=== PATIENT | male | born 1980 | race Caucasian/White ===

== ENCOUNTER 2018-09-12 12:44 | Emergency (ER) | payer BC ==
[2018-09-12 13:01] VITALS: BP 135/88
--- NOTE | 2018-09-12 13:19 | EDM.PDOC ---
ED HPI GENERAL MEDICAL PROBLEM - General Stated Complaint: PAIN BIG TOE-POST SURGERY Time Seen by Provider: 09/12/18 13:00 Source of Information: Reports: Patient History Limitations: Reports: No Limitations - History of Present Illness INITIAL COMMENTS - FREE TEXT/NARRATIVE: This 38 yo male patient reports to the ED with increased pain in his right foot (both 1st MCT and 5th MCT). The patient reports he had bunion surgery in May (pins placed during surgery). The patient reports he was doing fine until he was running several days ago and has had increased pain since that time. The patient has been taking OTC medication (Tylenol and ibuprofen), but has continued to have increased pain. The patient reports he has been resting, icing and elevating the extremity. The patient is concerned that he will be traveling over the next several days and will have to have increased activity which will cause increased pain. 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, NSAIDS Right Toe-Hailux Pain Score (Numeric/FACES): 5 - Related Data Allergies Allergy/AdvReac Type Severity Reaction Status Date / Time No Known Allergies Allergy Verified 09/12/18 12:54 Home Meds: Home Meds Ibuprofen [Advil] 200 mg PO ASDIRECTED PRN 03/27/14 [History] Acyclovir [Zovirax] 200 mg PO BID 12/20/15 [History] Zolpidem [Ambien] 10 mg PO BEDTIME 12/20/15 [History] Acetaminophen with Codeine [Acetaminophen-Cod #4] 2 each PO ASDIRECTED PRN 04/03 [History] ARIPiprazole [Abilify] 5 mg PO DAILY 09/12/18 [History] LORazepam [Ativan] 1.5 mg PO DAILY 09/12/18 [History] Past Medical History HEENT History: Reports: None Cardiovascular History: Reports: None Respiratory History: Reports: None Gastrointestinal History: Reports: None Genitourinary History: Reports: None Musculoskeletal History: Reports: None, Other (See Below) Neurological History: Reports: None Psychiatric History: Reports: Anxiety Endocrine/Metabolic History: Reports: None Hematologic History: Reports: None Immunologic History: Reports: None Oncologic (Cancer) History: Reports: None Dermatologic History: Reports: None - Past Surgical History HEENT Surgical History: Reports: None Respiratory Surgical History: Reports: None GI Surgical History: Reports: None Male Surgical History: Reports: None Social & Family History - Family History Family Medical History: Noncontributory - Tobacco Use Smoking Status *Q: Never Smoker - Caffeine Use Caffeine Use: Reports: Coffee - Recreational Drug Use Recreational Drug Use: No Review of Systems - Review of Systems Review Of Systems: ROS reveals no pertinent complaints other than HPI. ED EXAM, GENERAL - Physical Exam Exam: See Below Exam Limited By: No Limitations General Appearance: Alert, WD/WN, Mild Distress Eye Exam: Bilateral Eye: EOMI, Normal Inspection, PERRL Ears: Normal External Exam, Normal Canal, Hearing Grossly Normal, Normal TMs Nose: Normal Inspection, Normal Mucosa, No Blood Throat/Mouth: Normal Inspection, Normal Lips, Normal Teeth, Normal Gums, Normal Oropharynx, Normal Voice, No Airway Compromise Head: Atraumatic, Normocephalic Neck: Normal Inspection, Supple, Non-Tender, Full Range of Motion Respiratory/Chest: No Respiratory Distress, Lungs Clear, Normal Breath Sounds, No Accessory Muscle Use, Chest Non-Tender Cardiovascular: Normal Peripheral Pulses, Regular Rate, Rhythm, No Edema, No Gallop, No JVD, No Murmur, No Rub (Male) Exam: Deferred Rectal (Males) Exam: Deferred Extremities: Other (The patient reports pain with palpation and extension of the right great toe as well as pain with movement of ther right 5th toe. There does not appear to be swelling to the area. ) Neurological: Alert Psychiatric: Normal Affect, Normal Mood Skin Exam: Warm, Dry, Intact, Normal Color, No Rash Lymphatic: No Adenopathy Course - Vital Signs Last Recorded V/S: Last Vital Signs Temp 36.2 C 09/12/18 12:54 Pulse 81 09/12/18 12:54 Resp 16 09/12/18 12:54 BP 135/88 09/12/18 12:54 Pulse Ox 100 09/12/18 12:54 - Orders/Labs/Meds Orders: Active Orders 24 hr Category Date Time Status Foot Comp Min 3V Rt [CR] Urgent Exams 09/12/18 12:51 Ordered Departure - Departure Time of Disposition: 14:17 Disposition: Home, Self-Care 01 Condition: Fair Clinical Impression: Right foot pain - Discharge Information *PRESCRIPTION DRUG MONITORING PROGRAM REVIEWED*: Not Applicable *COPY OF PRESCRIPTION DRUG MONITORING REPORT IN PATIENT SIMIN: Not Applicable Forms: ED Department Discharge Care Plan Goals: The patient was advised of the examination and x-ray result during the visit. The patient was encouraged to rest, ice and elevate the extremity. The patient was discharged with a script for Larry () #12 to take 1 by mouth every 6 hours as needed. If the patient has any additional symptoms or concerns, the patient should follow-up with his primary care facility or return to the emergency department. - My Orders Last 24 Hours: My Active Orders 09/12/18 12:51 Foot Comp Min 3V Rt [CR] Urgent - Assessment/Plan Last 24 Hours: My Active Orders 09/12/18 12:51 Foot Comp Min 3V Rt [CR] Urgent
== END 2018-09-12 14:25 | disposition home or self-care (01) ==
LOC: DL.ED 12:44
DX: M79.674 Pain in right toe(s) (principal); F41.9 Anxiety disorder, unspecified; Z79.899 Other long term (current) drug therapy; Z98.890 Other specified postprocedural states
CPT/HCPCS: 73630-RT; 99283-25

== ENCOUNTER 2018-10-12 07:52 | Day surgery (SDC) | payer BC ==
[~2018-10-12 07:52] MED LIST: Lactated Ringers 1,000 ML IV SCH; Sodium Chloride 0.9% 10 ML Syringe FLUSH PRN
[2018-10-12] MEDS ORDERED: Midazolam 1 MG/ML 2 ML SDV IV ONE (07:53)
[2018-10-12] MEDS ORDERED: Propofol 200 MG/20 ML SDV IV ONE (07:53)
[2018-10-12] MEDS ORDERED: Ondansetron 4 MG/2 ML SDV IV ONE (07:53)
[2018-10-12] MEDS ORDERED: Ketorolac 30 MG/ML SDV IVPUSH ONE (07:53)
[2018-10-12] MEDS ORDERED: fentaNYL 100 MCG/2 ML SDV IV ONE (07:53)
[2018-10-12] MEDS ORDERED: Lidocaine 1% 30 ML SDV INJECT ONE ×3 (07:53→10:20)
[2018-10-12] MEDS ORDERED: Bupivacaine 0.5% 30 ML SDV INJECT ONE ×3 (07:53→10:20)
[2018-10-12] MEDS ORDERED: ceFAZolin 2 GM in Premix Bag 1 BAG IV ONE (08:00)
[2018-10-12] MEDS ORDERED: Lidocaine 1% 30 ML SDV ONE (09:28)
[2018-10-12] MEDS ORDERED: Bupivacaine 0.5% 30 ML SDV ONE (09:28)
[2018-10-12] MEDS ORDERED: Propofol 200 MG/20 ML SDV ONE (10:10)
[2018-10-12] MEDS ORDERED: Acetaminophen/HYDROcodone 325-10 MG Tab PO PRN (12:49)
--- NOTE | 2018-10-12 12:52 | PCM.OPNOTE ---
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 Giorgi 2.0 cannulated screw applied to 5th metatarsal. Epifix 4x4 applied to 1st and 5th met. Well padded compression dressing applied.
[2018-10-12 14:12] VITALS: BP 131/79
--- NOTE | 2018-10-13 12:44 | OR ---
DATE: 10/12/2018 PREOPERATIVE DIAGNOSES: 1. Right foot painful hardware. 2. 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 3. Right foot 1st metatarsophalangeal joint pain. POSTOPERATIVE DIAGNOSES: 1. Right foot painful hardware. 2. 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 3. Right foot 1st metatarsophalangeal joint pain. PROCEDURE PERFORMED: 1. Right foot painful hardware removal. 2. Right foot 5th metatarsal nonunion excision with screw fixation and EpiFix allograft. 3. Right foot 1st metatarsophalangeal joint exploration with bone spur excision. ANESTHESIA: Local MAC with preoperative local block of 10 mL of 1:1 mixture of 1% lidocaine plain and 0.5% Marcaine plain. TOURNIQUET TIME: 107 minutes, pneumatic ankle tourniquet. ESTIMATED BLOOD LOSS: Minimal. SPECIMEN REMOVED: None. COMPLICATIONS: None. INDICATIONS: Gabriele is a 38-year-old male, who presents for right foot pain after surgery. He states he had right foot surgery with a bunion and tailor's bunionectomy performed at the [facility] on 06/18/2018. He has been having pain to the surgical foot ever since. He has transitioned back to regular shoes, but is having a lot of pain with walking and standing. Most of the pain is to the outside of the foot at the tailor's bunionectomy, which is still very swollen. He also does have some pain to that great toe joint, which feels stiff. The pain is present all the time in this foot. X-rays of the right foot reveal bunionectomy with Elvin and tailor's bunionectomy present. K-wire to the 5th metatarsal is long and into his plantar foot, also protruding into the dorsolateral foot. The 5th metatarsal osteotomy is not healed. Screw intact to the 1st metatarsal and proximal phalanx with the bunion reduced, small ossicle in the medial 1st MTPJ. The patient voiced good understanding of the proposed procedure and possible complications, elects to have surgery at this time. DESCRIPTION OF PROCEDURE: The patient was taken to the operating room lying in supine position. After adequate anesthesia induction as described above, the right foot was prepped and draped in the usual sterile fashion. A pneumatic ankle tourniquet was inflated to 225 mmHg. Attention was then directed to the right foot first to the lateral aspect where an approximately 4 cm linear incision was made overlying the old incision site at the 5th metatarsal. Sharp and blunt dissection was performed down to the level of the 5th metatarsal. A linear capsulotomy was made and the distal 5th metatarsal was exposed. The K- wire was noted to be protruding into the soft tissues in this area and this K- wire was very loose and easily removed. The osteotomy site was inspected and was noted to be stable at the very lateral aspect; however, the dorsal and medial aspects were not healed and this fibrotic tissue at the osteotomy site was removed with a curette. A 2.0 cannulated screw was inserted across the nonunion site and it was noted to be stable with all forces applied. The area was then irrigated with copious amounts of sterile saline. A portion of the EpiFix #[id number] was placed on the 5th metatarsal. The area was then closed with deep closure with 3-0 Vicryl and skin closure with 4-0 nylon. Fluoroscopy was used throughout to verify proper positioning of the screw and fixation of the nonunion. Attention was then directed to the 1st metatarsophalangeal joint where an approximately 4 cm linear incision was made at the old incision site overlying the joint. Sharp and blunt dissection was performed down to the level of the joint capsule. A linear capsulotomy was made and the capsule was reflected to expose the distal 1st metatarsal. The joint was healthy in appearance; however, there was some bone spurring at the dorsal aspect of the 1st metatarsal head and proximal phalanx. This was removed with a sagittal saw and rongeur and also smoothed with a bone rasp. The great toe was noted to have better range of motion with this. It was fluid range of motion. The area was then irrigated with copious amounts of sterile saline. The rest of the EpiFix was placed at the top of the 1st metatarsophalangeal joint. Deep closure was completed with 3-0 Vicryl and skin closure was completed with 4-0 nylon. The area was dressed with Xeroform to the incision site, fluffs, Webril, and a well-padded compression dressing. The patient tolerated anesthesia and the procedure well, was transported to the recovery room with vital signs stable and vascular status intact as noted by immediate hyperemia to all digits upon deflation of the ankle tourniquet. The patient was then discharged home once he met hospital discharge requirements. [facility] /[id number]
== END 2018-10-12 13:25 | disposition home or self-care (01) ==
LOC: DL.SDS 07:52
PROVIDERS: ATTEND Podiatrist
DX: S92.351K Displaced fracture of fifth metatarsal bone, right foot, subsequent encounter for fracture with nonunion (principal); T84.84XA Pain due to internal orthopedic prosthetic devices, implants and grafts, initial encounter; M25.774 Osteophyte, right foot; F41.9 Anxiety disorder, unspecified; X58.XXXD Exposure to other specified factors, subsequent encounter; Z79.899 Other long term (current) drug therapy
CPT/HCPCS: 28107; 28322; A4217; J0690; J1885; J2001; J2250; J2405; J2704; J3010; J3490; J7120; C1713; C1776; Q4186

== ENCOUNTER 2019-01-25 05:30 | Day surgery (SDC) | payer BC ==
[2019-01-25] MEDS ORDERED: fentaNYL 100 MCG/2 ML SDV IV ONE (05:31)
[2019-01-25] MEDS ORDERED: Bupivacaine 0.5% 30 ML SDV INJECT ONE ×3 (05:31→08:53)
[2019-01-25] MEDS ORDERED: Dexamethasone 4 MG/ML SDV IV ONE (05:31)
[2019-01-25] MEDS ORDERED: Lidocaine 2% 20 ML MDV INJECT ONE (05:31)
[2019-01-25] MEDS ORDERED: Midazolam 1 MG/ML 2 ML SDV IV ONE (05:31)
[2019-01-25] MEDS ORDERED: Lidocaine 1% 30 ML SDV INJECT ONE ×3 (05:31→08:53)
[2019-01-25] MEDS ORDERED: Ketorolac 30 MG/ML SDV IVPUSH ONE (05:31)
[2019-01-25] MEDS ORDERED: ceFAZolin 2 GM in Premix Bag 1 BAG IV ONE (06:00)
[2019-01-25] MEDS ORDERED: Lactated Ringers 1,000 ML IV SCH (06:00)
[2019-01-25] MEDS ORDERED: Bupivacaine 0.5% 30 ML SDV ONE (06:26)
[2019-01-25] MEDS ORDERED: Lidocaine 1% 30 ML SDV ONE (06:26)
[2019-01-25] MEDS ORDERED: Sodium Chloride 0.9% 10 ML Syringe FLUSH PRN ×2 (07:00→08:00)
[2019-01-25] MEDS ORDERED: Acetaminophen/HYDROcodone 325-5 MG Tab PO PRN (09:02)
--- NOTE | 2019-01-25 09:06 | PCM.OPNOTE ---
- General Post-Op/Procedure Note Date of Surgery/Procedure: 01/25/19 Operative Procedure(s): Left foot 1st and 5th metatarsal bunionectomy/osteotomy Pre Op Diagnosis: left foot bunion and tailors bunion Post-Op Diagnosis: pradeep Anesthesia Technique: Local, MAC Primary Surgeon: Celeste Aparicio Garcia Anesthesia Provider: Eugene Barrios EBL in mLs: 5 Complications: none Condition: Good Free Text/Narrative:: Pt tolerated procedure well and was transported to recovery with vascular status intact to left foot. [place] 3.0 cannulated screws for 1st metatarsal, 2.0 cannulated screws for 5th metatarsal. Well padded compression dressing with cam boot applied.
[2019-01-25 10:32] VITALS: BP 140/85
--- NOTE | 2019-01-26 17:11 | OR ---
DATE: 01/25/2019 PREOPERATIVE DIAGNOSES: 1. Left foot bunion deformity. 2. Left foot tailor's bunion. POSTOPERATIVE DIAGNOSES: 1. Left foot bunion deformity. 2. Left foot tailor's bunion. PROCEDURE PERFORMED: 1. Left foot 1st metatarsal osteotomy/bunionectomy. 2. Left foot metatarsal osteotomy/bunionectomy. ANESTHESIA: Local MAC with preoperative local block at 10 mL of 1:1 mixture of 1% lidocaine plain, 0.5% Marcaine plain. Tourniquet time 103 minutes, pneumatic ankle tourniquet. ESTIMATED BLOOD LOSS: Minimal. SPECIMEN: None. COMPLICATIONS: None. INDICATION: Gabriele is a 38-year-old male who presents for left foot painful bunion and tailor's bunion. He has been having pain to his foot for a few years now. He does have history of right foot tailor's bunionectomy and bunionectomy of the 1st, that was last year, and he had a revision of the tailor's bunion back in September, that is well healed. He has pain whenever he is standing or walking, worse with pressure to the area. He has failed conservative options. X-rays of the left foot revealed bunion deformity present at the 1st metatarsal intermetatarsal angle of approximately 14 degrees, tailor's bunion present with a 4-5 IM angle of approximately 9 degrees. He has pes cavus foot type. The patient voiced understanding of proposed procedure and possible complications, elects to have surgery at this time. DESCRIPTION OF PROCEDURE: The patient was taken to the operating room in a supine position. After adequate anesthesia induction as described above, the left foot was prepped and draped in the usual sterile fashion. A pneumatic ankle tourniquet was inflated to 225 mmHg. Attention was then directed to the dorsal aspect of the 1st metatarsophalangeal joint where approximately 6 cm linear incision was made overlying the joint. Sharp and blunt dissection was performed down to the level of the joint capsule with care to gently retract all neurovascular structures. An inverted-L capsulotomy was made and the capsule was reflected to expose the distal 1st metatarsal. A hypertrophic medial eminence was noted and resected with a sagittal saw. Blunt dissection was performed in the 1st interspace to the level of the fibular sesamoid and the adductor hallucis tendon was transected. A sagittal saw was then used to make a [place]-type osteotomy with the long dorsal arm angulated in a fashion that would allow maintenance of length with lateral transposition of the capital fragment. The capital fragment was then laterally transposed 7 mm and impacted to bring the hallux in a near rectus alignment. A K-wire from the cannulated screw set was used as temporary fixation. Two partially-threaded cannulated Giorgi screws, 3.0, were then placed across the osteotomy site. The osteotomy site was noted to be stable with all forces applied and fluid range of motion of the 1st MTPJ. Fluoroscopy was used to verify proper reduction of deformity and fixation. The cortical shelf was removed. A capsulorrhaphy was made. The area was flushed with copious amounts of sterile saline. Capsular closure was completed with 3-0 Vicryl and skin closure was completed with 4-0 nylon. Attention was then directed to the left foot lateral aspect overlying the 5th MTPJ, where an approximately 5 cm linear incision was made. Sharp and blunt dissection was performed down to the level of the distal 5th metatarsal. A prominent lateral eminence was noted and was resected with the sagittal saw. The sagittal saw was then used to make a [place]-type osteotomy at the distal 5th metatarsal. The capital fragment was transposed medially and impacted to bring the toe in a rectus alignment. The cannulated wires were used as temporary fixation. Two partially-threaded cannulated 2.0 [place] screws were then inserted across the osteotomy site. Fluoroscopy was used throughout the procedure to verify proper reduction of the deformity and screw fixation. The lateral shelf was removed. The 5th toe was noted to be in rectus alignment and good fluid range of motion. I was able to visualize the plantar aspect of the 5th metatarsal and there was no prominence of the screws in this area. The area was then irrigated with copious amounts sterile saline. Deep capsular closure was completed with 3-0 Vicryl and skin closure was completed with 4-0 nylon. The left foot was then dressed with Xeroform to the incision site, fluffs, Webril, and an Vamsi wrap. The patient tolerated the procedure and anesthesia well and left the operating room for recovery with vascular status intact to left foot as noted by immediate hyperemia to all digits upon deflation of the ankle tourniquet. The patient was then discharged home once he met hospital discharge requirements. [facility] /[id number]
== END 2019-01-25 10:25 | disposition home or self-care (01) ==
LOC: DL.SDS 05:30
PROVIDERS: ATTEND Podiatrist
DX: M21.612 Bunion of left foot (principal); M21.622 Bunionette of left foot; F41.9 Anxiety disorder, unspecified; F32.9 Major depressive disorder, single episode, unspecified; F43.10 Post-traumatic stress disorder, unspecified; M54.30 Sciatica, unspecified side; M54.16 Radiculopathy, lumbar region; Z79.899 Other long term (current) drug therapy; Z98.890 Other specified postprocedural states
CPT/HCPCS: 28110; 28296; A9270; C1713; J0690; J1100; J1885; J2001; J2250; J2704; J3010; J3490; J7120

== ENCOUNTER 2019-06-03 13:33 | Emergency (ER) | payer BC ==
[2019-06-03 14:06] VITALS: BP 144/84; PULSE 72
--- NOTE | 2019-06-03 14:10 | CR ---
EXAMINATION: Ribs 2V w Chest Rt SEX: Male AGE: 39 years CLINICAL HISTORY: 39-year-old male injured fall 2 days ago on right side. INTERPRETATION: 1. No sign of right rib fracture, underlying lung contusion, atelectasis, ipsilateral dependent pleural effusion or pneumothorax. 2. Normal cardiac silhouette and mediastinal structures. No pulmonary vascular congestion, cephalization of flow or alveolar edema. 3. No lung mass, hilar lymphadenopathy or focal lobar pneumonia. 4. No foreign bodies. No atelectasis/collapse. CONCLUSION: Negative exam.
[2019-06-03] MEDS ORDERED: Lidocaine 5% Oint 35.44 GM Tube TOP ONE (14:15)
[2019-06-03] MEDS ORDERED: Ibuprofen 800 MG Tab PO ONE (14:15)
--- NOTE | 2019-06-03 14:21 | EDM.PDOC ---
Scribed by Blanca Delgadillo 06/03/19 1201 for Harrison Maldonado MD ED HPI GENERAL MEDICAL PROBLEM - General Chief Complaint: Upper Extremity Injury/Pain Stated Complaint: RIB PAIN RT SIDE Time Seen by Provider: 06/03/19 14:00 Source of Information: Reports: Patient, RN, RN Notes Reviewed History Limitations: Reports: No Limitations - History of Present Illness INITIAL COMMENTS - FREE TEXT/NARRATIVE: Patient presents to ER with right flank and ribs. Also feels that he may have sprained right thumb. Denies hitting head or loss of consciousness. Patient fell 2 days ago. Duration: Constant Quality: Reports: Ache Severity: Moderate Improves with: Reports: None Worsens with: Reports: None Associated Symptoms: Reports: No Other Symptoms Right Flank Pain Score (Numeric/FACES): 6 - Related Data Allergies Allergy/AdvReac Type Severity Reaction Status Date / Time No Known Allergies Allergy Verified 06/03/19 14:07 Home Meds: Home Meds Ibuprofen [Advil] 800 mg PO TID PRN 03/27/14 [History] Acyclovir [Zovirax] 200 mg PO BID 12/20/15 [History] Zolpidem [Ambien] 10 mg PO BEDTIME 12/20/15 [History] ARIPiprazole [Abilify] 7.5 mg PO DAILY 09/12/18 [History] LORazepam [Ativan] 1 mg PO TID PRN 09/12/18 [History] Sildenafil [Revatio] 10 mg PO ASDIRECTED PRN 10/11/18 [History] Cyclobenzaprine [Flexeril] 10 mg PO ASDIRECTED PRN 01/24/19 [History] Prazosin [Minpress] 1 mg PO BEDTIME 01/24/19 [History] Past Medical History HEENT History: Reports: None Cardiovascular History: Reports: None Respiratory History: Reports: None Gastrointestinal History: Reports: None Genitourinary History: Reports: Other (See Below) Other Genitourinary History: HX OF ERECTILE DYSFUNCTION Musculoskeletal History: Reports: Fracture, Other (See Below) Other Musculoskeletal History: HX OF TIBIA, FIBIA FRACTURE ON RIGHT Neurological History: Reports: None Psychiatric History: Reports: Anxiety Endocrine/Metabolic History: Reports: None Hematologic History: Reports: None Immunologic History: Reports: None Oncologic (Cancer) History: Reports: None Dermatologic History: Reports: None - Infectious Disease History Infectious Disease History: Reports: Chicken Pox - Past Surgical History Head Surgeries/Procedures: Reports: None HEENT Surgical History: Reports: LASIK Cardiovascular Surgical History: Reports: None Respiratory Surgical History: Reports: None GI Surgical History: Reports: Hernia, Inguinal Male Surgical History: Reports: Circumcision, Vasectomy Endocrine Surgical History: Reports: None Neurological Surgical History: Reports: None Musculoskeletal Surgical History: Reports: Other (See Below) Other Musculoskeletal Surgeries/Procedures:: RIGHT bunion surg Oncologic Surgical History: Reports: None Dermatological Surgical History: Reports: None Social & Family History - Family History Family Medical History: Noncontributory - Caffeine Use Caffeine Use: Reports: Soda Caffeine Use Comment: 12-20 oz daily Review of Systems - Review of Systems Review Of Systems: Comprehensive ROS is negative, except as noted in HPI. ED EXAM, GENERAL - Physical Exam Exam: See Below Exam Limited By: No Limitations General Appearance: Alert, WD/WN, No Apparent Distress Nose: Normal Inspection Throat/Mouth: Normal Inspection Head: Atraumatic, Normocephalic Neck: Normal Inspection, Supple, Non-Tender, Full Range of Motion Respiratory/Chest: No Respiratory Distress, Lungs Clear, Normal Breath Sounds, No Accessory Muscle Use, Other (tender to palpation at Rt lateral chest wall, no visible bruising, swelling, or deformity, no palpable crepitus) GI/Abdominal: Normal Bowel Sounds, Soft, Non-Tender, No Organomegaly, No Distention, No Abnormal Bruit, No Mass Back Exam: Normal Inspection, Full Range of Motion, NT Extremities: Normal Inspection, Normal Range of Motion, Non-Tender, No Pedal Edema, Normal Capillary Refill, Other (Mild tenderness at Rt thumb with no swelling, bruising, or deformity) Neurological: Alert, Oriented, CN II-XII Intact, Normal Cognition, Normal Gait, No Motor/Sensory Deficits Psychiatric: Normal Mood Skin Exam: Warm, Dry, Intact, Normal Color, No Rash Course - Vital Signs Last Recorded V/S: Last Vital Signs Temp 98.4 F 06/03/19 13:35 Pulse 72 06/03/19 13:35 Resp 16 06/03/19 13:35 BP 144/84 H 06/03/19 13:35 Pulse Ox 98 06/03/19 13:35 - Orders/Labs/Meds Meds: Medications Discontinued Medications Generic Name Dose Route Start Last Admin Trade Name [place] PRN Reason Stop Dose Admin Ibuprofen 800 mg 06/03/19 14:15 Motrin PO 06/03/19 14:16 ONETIME ONE Lidocaine HCl 15 gm 06/03/19 14:15 Lidocaine 5% TOP 06/03/19 14:16 ONETIME ONE - Radiology Interpretation Free Text/Narrative:: Rib x-ray: Negative exam. See rad report. Departure - Departure Time of Disposition: 14:16 Disposition: Home, Self-Care 01 Condition: Good Clinical Impression: Chest wall contusion Qualifiers: Encounter type: initial encounter Laterality: right Qualified Code(s): S20.211A - Contusion of right front wall of thorax, initial encounter Sprain of right thumb Qualifiers: Encounter type: initial encounter Sprain of finger site: metacarpophalangeal joint Qualified Code(s): S63.641A - Sprain of metacarpophalangeal joint of right thumb, initial encounter - Discharge Information *PRESCRIPTION DRUG MONITORING PROGRAM REVIEWED*: Not Applicable *COPY OF PRESCRIPTION DRUG MONITORING REPORT IN PATIENT SIMIN: Not Applicable Instructions: Chest Contusion, Adult, [id number] Forms: ED Department Discharge Additional Instructions: Lidocaine 5% ointment applied to small amount to area of pain every 4 to 6 hours as needed. Use over the counter Ibuprofen, follow directions on label for dosing and precautions. Activity as tolerated. Expect symptoms to resolve over the net 10 days to 2 weeks. Follow up in clinic if needed. Sepsis Event Note - Focused Exam Vital Signs: Vital Signs Temp Pulse Resp BP Pulse Ox 06/03/19 13:35 98.4 F 72 16 144/84 H 98 Date Exam was Performed: 06/03/19 Time Exam was Performed: 14:21 I have read and agree with the documentation that has been completed regarding this visit. By signing this record, I attest that the documentation was completed in my physical presence and is an accurate record of the encounter.
[2019-06-03] MEDS ORDERED: Ibuprofen 800 MG Tab ONE (14:27)
== END 2019-06-03 14:38 | disposition home or self-care (01) ==
LOC: DL.ED 13:33
DX: S20.211A Contusion of right front wall of thorax, initial encounter (principal); F41.9 Anxiety disorder, unspecified; Z79.899 Other long term (current) drug therapy; W18.30XA Fall on same level, unspecified, initial encounter
CPT/HCPCS: 71101; 99284; A9270

== ENCOUNTER 2020-02-20 12:43 | Emergency (ER) | payer BC ==
[2020-02-20 13:07] VITALS: BP 135/88; PULSE 69
== END 2020-02-20 17:16 | disposition left against medical advice (07) ==
LOC: DL.ED 12:43
DX: Z53.21 Procedure and treatment not carried out due to patient leaving prior to being seen by health care provider (principal)